=== PATIENT | female | born 1960 | race Caucasian/White ===

== ENCOUNTER 2020-11-15 12:18 | Inpatient (IN) ==
[2020-11-15] MEDS ORDERED: Naloxone 0.4 MG/ML INJ IVP PRN (16:57)
[2020-11-15] MEDS: *HR* OxyCODONE/APAP 10/325 TABLET PO PRN (18:45)
[2020-11-15] MEDS: Piperacillin/Tazobactam 3.375 GM in 0.9 % Sodium Chloride Mini Bag 100 ML IVPB SCH (18:45)
[2020-11-15] MEDS: Gabapentin 300 MG CAPSULE PO SCH (18:45)
[2020-11-15] MEDS: traZODone 50 MG TABLET PO SCH (21:38)
[2020-11-15] MEDS: *HR* Heparin 5,000 UNIT/ML VIAL SQ SCH (21:38)
[2020-11-16] MEDS: Piperacillin/Tazobactam 3.375 GM in 0.9 % Sodium Chloride Mini Bag 100 ML IVPB SCH ×3 (02:01→18:29)
[2020-11-16] MEDS: *HR* OxyCODONE/APAP 10/325 TABLET PO PRN ×4 (02:06→21:48)
[2020-11-16 04:44] LABS: Basophils % 0.4 %; Eosinophils # 0.1 K/mcL (0.0-0.6); Eosinophils % 1.2 %; Hematocrit 44.4 % (35.3-44.9); Hemoglobin 13.2 g/dL (11.5-15.4); Immature Granulocytes % 0.7 % (0-4); Lymphocytes # 1.8 K/mcL (0.6-4.6); Lymphocytes % 23.8 %; Mean Corpuscular HGB Conc 29.7 g/dL (31.6-35.5); Mean Corpuscular Volume 94.1 fL (83.0-100.0); Mean Platelet Volume 11.5 fL (9.4-12.4); Monocytes % 18.2 %; Neutrophils # 4.1 K/mcL (1.6-8.9); Platelet Count 157 K/mcL (140-400); Red Blood Count 4.72 M/mcL (3.82-4.97); Red Cell Distribution Width 13.4 % (11.5-14.5); Segmented Neutrophils % 55.7 %; White Blood Count 7.4 K/mcL (4.3-11.1)
[2020-11-16 04:49] LABS: Monocytes # 1.4 K/mcL (0.0-1.3); Platelet Estimate Normal (Normal)
[2020-11-16] MEDS: *HR* Heparin 5,000 UNIT/ML VIAL SQ SCH ×3 (04:56→21:49)
[2020-11-16 04:58] LABS: BUN/Creatinine Ratio 19 (6-26); Blood Urea Nitrogen 11 mg/dL (8-23); Calcium 8.6 mg/dL (8.6-10.3); Carbon Dioxide 30 mEq/L (23-29); Chloride 101 mEq/L (98-107); Glucose 140 mg/dL (70-105); Osmolality,Calculated 288 (280-300); Potassium 3.7 mEq/L (3.5-5.1); Sodium 138 mEq/L (136-145); eGFR For African Americans > 60 (> 60); eGFR For Non-African Americans > 60 (> 60)
[2020-11-16] MEDS: Aspirin Enteric Coated 81 MG Tablet PO SCH (09:57)
[2020-11-16] MEDS: Gabapentin 300 MG CAPSULE PO SCH ×3 (09:57→21:48)
[2020-11-16] MEDS: Furosemide 40 MG TABLET PO SCH (09:58)
[2020-11-16] MEDS ORDERED: Ketorolac 15 MG/ML VIAL IVP ONE (13:54)
[2020-11-16] MEDS: traZODone 50 MG TABLET PO SCH (21:49)
[2020-11-17] MEDS: Piperacillin/Tazobactam 3.375 GM in 0.9 % Sodium Chloride Mini Bag 100 ML IVPB SCH ×3 (02:02→17:33)
[2020-11-17] MEDS: *HR* OxyCODONE/APAP 10/325 TABLET PO PRN ×4 (04:01→22:10)
[2020-11-17] MEDS: *HR* Heparin 5,000 UNIT/ML VIAL SQ SCH ×3 (05:24→20:19)
[2020-11-17 05:33] LABS: Basophils % 0.6 %; Eosinophils # 0.1 K/mcL (0.0-0.6); Eosinophils % 2.1 %; Hematocrit 43.7 % (35.3-44.9); Hemoglobin 12.9 g/dL (11.5-15.4); Immature Granulocytes % 0.9 % (0-4); Lymphocytes # 0.7 K/mcL (0.6-4.6); Mean Corpuscular HGB Conc 29.5 g/dL (31.6-35.5); Mean Corpuscular Hemoglobin 28.3 pg (28.0-33.3); Mean Corpuscular Volume 95.8 fL (83.0-100.0); Mean Platelet Volume 11.2 fL (9.4-12.4); Monocytes # 1.1 K/mcL (0.0-1.3); Monocytes % 20.2 %; Platelet Count 171 K/mcL (140-400); Red Blood Count 4.56 M/mcL (3.82-4.97); Red Cell Distribution Width 13.5 % (11.5-14.5); Segmented Neutrophils % 63.2 %; White Blood Count 5.3 K/mcL (4.3-11.1)
[2020-11-17 05:50] LABS: Neutrophils # 3.4 K/mcL (1.6-8.9)
[2020-11-17 05:58] LABS: BUN/Creatinine Ratio 19 (6-26); Blood Urea Nitrogen 11 mg/dL (8-23); Calcium 8.7 mg/dL (8.6-10.3); Carbon Dioxide 35 mEq/L (23-29); Chloride 100 mEq/L (98-107); Glucose 154 mg/dL (70-105); Osmolality,Calculated 292 (280-300); Potassium 3.9 mEq/L (3.5-5.1); Sodium 140 mEq/L (136-145); eGFR For African Americans > 60 (> 60); eGFR For Non-African Americans > 60 (> 60)
[2020-11-17 06:12] LABS: Anisocytosis 1+ (Not Present); Platelet Estimate Normal (Normal); Polychromasia 1+ (Not Present)
[2020-11-17] MEDS: Gabapentin 300 MG CAPSULE PO SCH ×3 (09:41→20:19)
[2020-11-17] MEDS: Aspirin Enteric Coated 81 MG Tablet PO SCH (09:41)
[2020-11-17] MEDS: Furosemide 40 MG TABLET PO SCH (09:41)
[2020-11-17] MEDS: traZODone 50 MG TABLET PO SCH (20:19)
[2020-11-18] MEDS: Piperacillin/Tazobactam 3.375 GM in 0.9 % Sodium Chloride Mini Bag 100 ML IVPB SCH ×3 (02:12→16:43)
[2020-11-18] MEDS: *HR* OxyCODONE/APAP 10/325 TABLET PO PRN ×4 (03:56→22:29)
[2020-11-18 05:17] LABS: Basophils % 0.6 %; Eosinophils # 0.2 K/mcL (0.0-0.6); Eosinophils % 2.9 %; Hematocrit 42.1 % (35.3-44.9); Hemoglobin 12.8 g/dL (11.5-15.4); Immature Granulocytes % 1.2 % (0-4); Lymphocytes # 1.2 K/mcL (0.6-4.6); Lymphocytes % 22.8 %; Mean Corpuscular HGB Conc 30.4 g/dL (31.6-35.5); Mean Corpuscular Hemoglobin 29.1 pg (28.0-33.3); Mean Corpuscular Volume 95.7 fL (83.0-100.0); Mean Platelet Volume 11.4 fL (9.4-12.4); Monocytes % 19.7 %; Platelet Count 170 K/mcL (140-400); Red Cell Distribution Width 13.2 % (11.5-14.5); Segmented Neutrophils % 52.8 %; White Blood Count 5.2 K/mcL (4.3-11.1)
[2020-11-18 05:33] LABS: BUN/Creatinine Ratio 17 (6-26); Blood Urea Nitrogen 9 mg/dL (8-23); Calcium 8.5 mg/dL (8.6-10.3); Carbon Dioxide 36 mEq/L (23-29); Chloride 97 mEq/L (98-107); Glucose 137 mg/dL (70-105); Osmolality,Calculated 287 (280-300); Potassium 3.5 mEq/L (3.5-5.1); Sodium 138 mEq/L (136-145); eGFR For African Americans > 60 (> 60); eGFR For Non-African Americans > 60 (> 60)
[2020-11-18 05:37] LABS: Neutrophils # 2.8 K/mcL (1.6-8.9)
[2020-11-18] MEDS: *HR* Heparin 5,000 UNIT/ML VIAL SQ SCH ×3 (05:43→20:39)
[2020-11-18 05:51] LABS: Platelet Estimate Normal (Normal)
[2020-11-18] MEDS: Furosemide 40 MG TABLET PO SCH (08:08)
[2020-11-18] MEDS: Gabapentin 300 MG CAPSULE PO SCH ×3 (08:08→20:39)
[2020-11-18] MEDS: Aspirin Enteric Coated 81 MG Tablet PO SCH (08:08)
[2020-11-18] MEDS ORDERED: Perflutren Lipid Microsphere 1.3 ML in 0.9 % Sodium Chloride 8.7 ML IVP PRN (15:15)
[2020-11-18] MEDS: traZODone 50 MG TABLET PO SCH (20:39)
[2020-11-19] MEDS: Piperacillin/Tazobactam 3.375 GM in 0.9 % Sodium Chloride Mini Bag 100 ML IVPB SCH ×3 (02:04→16:16)
[2020-11-19 05:21] LABS: Hematocrit 42.9 % (35.3-44.9); Hemoglobin 12.8 g/dL (11.5-15.4); Mean Corpuscular HGB Conc 29.8 g/dL (31.6-35.5); Mean Corpuscular Volume 93.9 fL (83.0-100.0); Mean Platelet Volume 11.3 fL (9.4-12.4); Platelet Count 189 K/mcL (140-400); Red Blood Count 4.57 M/mcL (3.82-4.97); Red Cell Distribution Width 13.2 % (11.5-14.5)
[2020-11-19] MEDS: *HR* Heparin 5,000 UNIT/ML VIAL SQ SCH ×3 (05:48→21:51)
[2020-11-19] MEDS: *HR* OxyCODONE/APAP 10/325 TABLET PO PRN ×2 (08:59→16:17)
[2020-11-19] MEDS: Aspirin Enteric Coated 81 MG Tablet PO SCH (08:59)
[2020-11-19] MEDS: Gabapentin 300 MG CAPSULE PO SCH ×3 (08:59→22:03)
[2020-11-19] MEDS: Furosemide 40 MG TABLET PO SCH (09:00)
[2020-11-19] MEDS ORDERED: Lidocaine Viscous Oral Soln 15 ML SOLUTION MM PRN (13:28)
[2020-11-19] MEDS ORDERED: *HR* FentaNYL (PF) 100 MCG/2 ML VIAL IVP PRN (13:28)
[2020-11-19] MEDS ORDERED: *HR* Midazolam HCl 5 MG/5 ML VIAL IVP PRN (13:29)
[2020-11-19] MEDS ORDERED: 0.9 % Sodium Chloride 500 ML IVC ONE (13:29)
[2020-11-19] MEDS: predniSONE 20 MG TABLET PO SCH (18:27)
[2020-11-19] MEDS: cefTRIAXone 2,000 MG in Water for inj. (sterile) 20 ML IVP SCH (21:50)
[2020-11-19] MEDS: traZODone 50 MG TABLET PO SCH (22:03)
[2020-11-20] MEDS: *HR* Heparin 5,000 UNIT/ML VIAL SQ SCH ×3 (06:06→20:37)
[2020-11-20] MEDS: Aspirin Enteric Coated 81 MG Tablet PO SCH (07:48)
[2020-11-20] MEDS: *HR* OxyCODONE/APAP 10/325 TABLET PO PRN ×2 (07:48→15:41)
[2020-11-20] MEDS: Gabapentin 300 MG CAPSULE PO SCH ×3 (07:49→20:36)
[2020-11-20] MEDS: Furosemide 40 MG TABLET PO SCH (07:49)
[2020-11-20] MEDS: amLODIPine 5 MG TABLET PO SCH (15:41)
[2020-11-20] MEDS: predniSONE 20 MG TABLET PO SCH (17:13)
[2020-11-20] MEDS: traZODone 50 MG TABLET PO SCH (20:36)
[2020-11-20] MEDS: cefTRIAXone 2,000 MG in Water for inj. (sterile) 20 ML IVP SCH (20:36)
[2020-11-21] MEDS: *HR* Heparin 5,000 UNIT/ML VIAL SQ SCH ×3 (05:30→21:56)
[2020-11-21] MEDS: *HR* OxyCODONE/APAP 10/325 TABLET PO PRN ×3 (05:35→18:50)
[2020-11-21] MEDS: Furosemide 40 MG TABLET PO SCH (08:35)
[2020-11-21] MEDS: amLODIPine 5 MG TABLET PO SCH (08:35)
[2020-11-21] MEDS: Aspirin Enteric Coated 81 MG Tablet PO SCH (08:35)
[2020-11-21] MEDS: Gabapentin 300 MG CAPSULE PO SCH ×2 (08:35→14:26)
[2020-11-21] MEDS: predniSONE 20 MG TABLET PO SCH (17:36)
[2020-11-21] MEDS: Gabapentin 400 MG CAPSULE PO SCH (20:14)
[2020-11-21] MEDS: traZODone 50 MG TABLET PO SCH (20:14)
[2020-11-22] MEDS: *HR* Heparin 5,000 UNIT/ML VIAL SQ SCH ×2 (05:27→13:41)
[2020-11-22] MEDS: *HR* OxyCODONE/APAP 10/325 TABLET PO PRN ×2 (05:51→13:41)
[2020-11-22] MEDS: Gabapentin 400 MG CAPSULE PO SCH ×3 (08:12→20:17)
[2020-11-22] MEDS: Furosemide 40 MG TABLET PO SCH (08:12)
[2020-11-22] MEDS: Aspirin Enteric Coated 81 MG Tablet PO SCH (08:12)
[2020-11-22] MEDS: amLODIPine 5 MG TABLET PO SCH (08:13)
[2020-11-22 12:57] LABS: BUN/Creatinine Ratio 20 (6-26); Blood Urea Nitrogen 11 mg/dL (8-23); Calcium 9.1 mg/dL (8.6-10.3); Carbon Dioxide 35 mEq/L (23-29); Chloride 97 mEq/L (98-107); Glucose 101 mg/dL (70-105); Osmolality,Calculated 288 (280-300); Potassium 3.6 mEq/L (3.5-5.1); Sodium 139 mEq/L (136-145); eGFR For African Americans > 60 (> 60); eGFR For Non-African Americans > 60 (> 60)
[2020-11-22] MEDS ORDERED: Isovue-370 500 ML BOTTLE IVP ONE (14:55)
[2020-11-22] MEDS: predniSONE 20 MG TABLET PO SCH (18:09)
[2020-11-22] MEDS: traZODone 50 MG TABLET PO SCH (20:17)
[2020-11-23] MEDS: *HR* Heparin 5,000 UNIT/ML VIAL SQ SCH ×4 (01:15→20:11)
[2020-11-23] MEDS: *HR* OxyCODONE/APAP 10/325 TABLET PO PRN ×3 (04:37→20:11)
[2020-11-23] MEDS: amLODIPine 5 MG TABLET PO SCH (08:42)
[2020-11-23] MEDS: Aspirin Enteric Coated 81 MG Tablet PO SCH (08:42)
[2020-11-23] MEDS: Gabapentin 400 MG CAPSULE PO SCH ×3 (08:42→20:11)
[2020-11-23] MEDS ORDERED: lisinopriL 5 MG TABLET PO SCH (10:45)
[2020-11-23] MEDS ORDERED: amLODIPine 5 MG TABLET PO ONE (11:07)
[2020-11-23] MEDS: Furosemide 40 MG TABLET PO SCH (14:35)
[2020-11-23] MEDS: predniSONE 20 MG TABLET PO SCH (16:51)
[2020-11-23] MEDS: traZODone 50 MG TABLET PO SCH (20:11)
[2020-11-24] MEDS: *HR* Heparin 5,000 UNIT/ML VIAL SQ SCH ×2 (05:35→15:15)
[2020-11-24] MEDS: Aspirin Enteric Coated 81 MG Tablet PO SCH (08:21)
[2020-11-24] MEDS: *HR* OxyCODONE/APAP 10/325 TABLET PO PRN ×3 (08:21→17:45)
[2020-11-24] MEDS: Gabapentin 400 MG CAPSULE PO SCH ×2 (08:21→15:15)
[2020-11-24] MEDS: amLODIPine 5 MG TABLET PO SCH (08:22)
[2020-11-24] MEDS: Furosemide 40 MG TABLET PO SCH (08:22)
[2020-11-24] MEDS ORDERED: lisinopriL 20 MG TABLET PO SCH (09:00)
[2020-11-24] MEDS ORDERED: lisinopriL 10 MG TABLET PO SCH (09:00)
[2020-11-24 16:28] VITALS: BP 144/77
== END 2020-11-24 18:02 | DRG 552 ==
LOC: 3NENU → 3ANU 11-16 14:24
PROVIDERS: ADMIT Internal Medicine; ATTEND Internal Medicine